=== PATIENT | male | born 1975 | race Caucasian/White ===

== ENCOUNTER 2018-05-28 08:22 | Inpatient (IN) | payer OTHER ==
[2018-05-28] MEDS ORDERED: PROPOFOL 200 MG/20 ML VIAL As Ordered (09:18)
[2018-05-28] MEDS ORDERED: LIDOCAINE 2% INJ 100 MG/5 ML SDV (FOR ANES.) As Ordered (09:18)
[2018-05-28] MEDS ORDERED: dexameTHASONE 4 MG/ML 1ML VIAL (J1100) As Ordered (09:18)
[2018-05-28] MEDS ORDERED: MIDAZOLAM INJ 2 MG/2 ML VIAL (J2250) As Ordered (09:18)
[2018-05-28] MEDS ORDERED: ROCURONIUM BROMIDE 50 MG/5 ML VIAL As Ordered (09:18)
[2018-05-28] MEDS ORDERED: fentaNYL 100 MCG/2 ML INJECTION (J3010) As Ordered (09:18)
[2018-05-28] MEDS: PERCOCET 5MG/325MG TAB PO ×2 (09:34→20:55)
[2018-05-28] MEDS: GABAPENTIN 300 MG CAP PO (09:34)
[2018-05-28] MEDS: LR 1,000 ML IV ×2 (09:34→16:22)
[2018-05-28] MEDS ORDERED: HYDROmorphone HCL 2 MG/ML 1ML VIAL (J1170) As Ordered (11:36)
[2018-05-28] MEDS ORDERED: ePHEDrine SULFATE 25 MG/5 ML(5MG/ML) SYRINGE As Ordered (12:15)
[2018-05-28] MEDS ORDERED: ONDANSETRON 4MG/2ML VIAL (J2405) As Ordered (13:42)
[2018-05-28] MEDS ORDERED: GLYCOPYRROLATE INJ 0.2 MG/ML 2 ML VIAL As Ordered (13:42)
[2018-05-28] MEDS: LIDOCAINE W/EPINEPHRINE 1% 20ML VIAL As Ordered (14:00)
[2018-05-28] MEDS: THROMBIN SOLN 20,000 UNITS KIT As Ordered (14:00)
[2018-05-28] MEDS: BACITRACIN PWD 50,000 UNITS VIAL As Ordered (14:00)
[2018-05-28] MEDS: methylPREDNISolone 500 MG VIAL (J2930) As Ordered (14:17)
[2018-05-28] MEDS ORDERED: fentaNYL 100 MCG/2 ML INJECTION (J3010) IV (14:45)
[2018-05-28] MEDS ORDERED: PERCOCET 5MG/325MG TAB PO ×2 (14:45→15:00)
[2018-05-28] MEDS ORDERED: HYDROMORPHONE HCL 0.5 MG/ 0.5 ML SYRINGE (J1170 PER 1) IV ×2 (15:00)
[2018-05-28] MEDS: ONDANSETRON 4MG/2ML VIAL (J2405) IV (15:27)
[2018-05-28] MEDS: D5W/LR 1,000 ML IV (16:23)
[2018-05-28] MEDS: PROMETHAZINE INJ 25 MG/ML VIAL (J2550) IV (18:46)
[2018-05-29] MEDS: D5W/LR 1,000 ML IV ×2 (01:00→11:00)
[2018-05-29] MEDS: PERCOCET 5MG/325MG TAB PO ×2 (02:05→08:39)
[2018-05-29] MEDS: METAMUCIL (PSYLLIUM) PACKET PO (08:39)
== END 2018-05-29 12:40 | disposition home or self-care (01) | DRG 321 ==
LOC: M OR 08:22 → M MS5PR 16:05
PROC: 0RG20K0 Fusion of 2 or more Cervical Vertebral Joints with Nonautologous Tissue Substitute, Anterior Approach, Anterior Column, Open Approach (ICD-10-PCS; principal; 2018-05-28 10:15)
PROC: 0RB30ZZ Excision of Cervical Vertebral Disc, Open Approach (ICD-10-PCS; 2018-05-28 10:15)
DX: M47.22 Other spondylosis with radiculopathy, cervical region (principal); F32.9 Major depressive disorder, single episode, unspecified; M48.02 Spinal stenosis, cervical region; F41.9 Anxiety disorder, unspecified; Z79.899 Other long term (current) drug therapy; Z87.891 Personal history of nicotine dependence

== ENCOUNTER 2018-06-02 12:28 | Emergency (ER) | payer OTHER ==
[2018-06-02] MEDS: ALPRAZolam 0.5 MG TAB PO (14:15)
== END 2018-06-02 17:36 | disposition home or self-care (01) ==
LOC: M ED 12:28
DX: F41.1 Generalized anxiety disorder (principal); Z79.899 Other long term (current) drug therapy
CPT/HCPCS: 99283

== ENCOUNTER → 2019-03-21 | Outpatient (CLI) | payer OTHER ==
[~2019-03-21] MED LIST: ACET1TAB55 PO; AUGM875T28 PO; PROZ20CA11 PO; VARE1TA PO; VENTAER INH; XANA0.25 PO
--- NOTE | 2019-03-21 13:21 | REP ---
MRI LUMBAR SPINE WITHOUT CONTRAST: HISTORY: Lumbar spinal stenosis. Comparison lumbar spine MRI study is from July 14, 2016. TECHNIQUE: Sagittal and axial T1- and T2-weighted scans are acquired in the usual fashion with and without fat saturation. Sequences include spin echo, turbo spin-echo, and STIR imaging sequences. Lumbar vertebral body heights are preserved. Alignment is normal. There is no evidence of spondylolysis or spondylolisthesis. The conus medullaris is normal in position and appearance at L1. There is degenerative narrowing of the L1-2 disc with a Schmorl node at the inferior endplate anteriorly at L1. This is unchanged. Axial and sagittal L1-2 images show minimal disc bulging effacing the ventral thecal sac margin. This is unchanged. At L2-3, there is no significant abnormality. At L3-4, there is mild degenerative narrowing of the disc and diffuse disc bulging of the posterior margin indents the thecal sac. There is mild ligamentum flavum hypertrophy. Canal size is borderline. Midline AP dimension of the thecal sac is 10 mm at L3-4. These findings are unchanged. At L4-5, there is mild central canal stenosis due to mild diffusely bulging disc margin, developmentally small thecal sac, and some ligamentum flavum and facet hypertrophy. Thecal sac has a triangular configuration. Its midline AP dimension is 10 mm. The appearance is unchanged. No neural foraminal narrowing is seen. At L5-S1, there is mild facet hypertrophy bilaterally, unchanged from the comparison study. IMPRESSION: Mild central canal narrowing L3-4 and L4-5, unchanged from comparison study. Degenerative disc disease L3-4 and L1-2. Facet hypertrophy in the lower lumbar levels. No change from comparison study. Electronically Signed by Richard Ames MD 03/21/2019 02:21 P
== END ==
LOC: M RAD 10:56
PROVIDERS: ATTEND Physician Assistant
DX: M48.061 Spinal stenosis, lumbar region without neurogenic claudication (principal); M51.36 Other intervertebral disc degeneration, lumbar region

== ENCOUNTER → 2020-08-14 | Outpatient (CLI) | payer OTHER | LOC: M PLARAD 13:14 | PROVIDERS: ATTEND Orthopaedic Surgery | DX: M50.31 Other cervical disc degeneration, high cervical region (principal); Z98.1 Arthrodesis status; M50.321 Other cervical disc degeneration at C4-C5 level; M50.322 Other cervical disc degeneration at C5-C6 level; M50.323 Other cervical disc degeneration at C6-C7 level ==